=== PATIENT | male | born 1940 | race Two or more races ===

== ENCOUNTER 2023-04-28 19:27 | Emergency (ER) | payer MEDICARE, OTHER ==
[~2023-04-28] VITALS: Ht 167.6 cm; Wt 74.4 kg
[2023-04-28 20:53] LABS: BASOPHILS % (AUTO) 0.7 % (0.0-2.0); EOSINOPHILS # (AUTO) 0.2 K/uL (0.0-0.7); EOSINOPHILS % (AUTO) 2.6 % (0.0-6.0); HEMATOCRIT 35 % (39-51); HEMOGLOBIN 11.6 g/dL (13.5-17.5); LYMPHOCYTES # (AUTO) 2.1 K/uL (0.8-4.8); LYMPHOCYTES % (AUTO) 33.5 % (20.0-44.0); MEAN CORPUSCULAR HEMOGLOBIN 34 PG (26.0-33.0); MEAN CORPUSCULAR HGB CONC 33 g/dl (31.0-36.0); MEAN CORPUSCULAR VOLUME 103 fL (80-96); MONOCYTES # (AUTO) 0.6 K/uL (0.1-1.30); MONOCYTES % (AUTO) 9.2 % (2.0-12.0); NEUTROPHILS # (AUTO) 3.4 K/uL (1.8-8.9); PLATELET COUNT (AUTO) 253 K/uL (150-450); RED BLOOD CELL COUNT(AUTO) 3.38 MIL/uL (4.5-6.0); RED CELL DISTRIBUTION WIDTH 15.2 % (11.5-15.0); WHITE BLOOD COUNT (AUTO) 6.3 K/uL (4.3-11.0)
[2023-04-28 21:03] LABS: CALCIUM, SERUM 9.1 mg/dL (8.5-10.1); CARBON DIOXIDE 25 mmol/L (21-32); CHLORIDE 104 mmol/L (98-107); CREATININE 1.3 mg/dL (0.6-1.3); GLUCOSE 98 mg/dL (74-106); POTASSIUM 3.8 mmol/L (3.5-5.1); SODIUM SERUM 136 mmol/L (136-145); UREA NITROGEN, BLOOD 25 mg/dL (7-18)
[2023-04-28 21:13] LABS: INR 1.13 (0.91-1.10); PROTHROMBIN TIME 11.8 SECS (9.2-11.1)
[2023-04-28 22:09] LABS: ANISOCYTOSIS 1+; EOSINOPHILS % (MANUAL) 5 % (0-4); LYMPHOCYTES % (MANUAL) 23 % (16-48); MONOCYTES % (MANUAL) 6 % (0-11.0); NEUTROPHILS % (MANUAL) 66 (42-76); PLATELET ESTIMATE ADEQUATE
[2023-04-29] MEDS ORDERED: IV NS 0.9% 250 ML IV ONE (00:48)
[2023-04-29] MEDS ORDERED: IOHEXOL-300 100 ML VIAL IV ONE (00:48)
[2023-04-29 04:47] VITALS: BP 190/96; TEMP 97.8; O2SAT 98
== END 2023-04-29 05:01 | disposition home or self-care (01) ==
LOC: ER 19:29
DX: M79.89 Other specified soft tissue disorders (principal); I10 Essential (primary) hypertension
CPT/HCPCS: 99285; 73701; 93970; 71045; 93005; 74177; 85025; 80048; 36415; 84484; 85730; 82962; 85007; J7050; Q9967